=== PATIENT | female | born 1945 | race Caucasian/White ===

== ENCOUNTER 2018-01-29 21:57 | Inpatient (IN) | payer SELFPAY ==
[~2018-01-29] VITALS: Ht 157.5 cm; Wt 81.8 kg
[2018-01-29 23:11] LABS: MCH 29.2 PG (29.0-34.0); MCHC 34.9 G/DL (30.0-36.0); MCV 83.7 FL (83-99); PLATELET COUNT 259 K/uL (156-360); RBC DIS.WIDTH-CV 12.3 % (11.8-14.6); RBC DIS.WIDTH-SD 37.7 % (39-53); RED BLOOD COUNT 5.14 M/uL (3.80-5.20)
[2018-01-29 23:23] LABS: CHLORIDE 106 mEq/L (99-109); POTASSIUM 4.2 mEq/L (3.7-5.4); SODIUM 138 mEq/L (136-147)
[2018-01-29 23:25] LABS: GLUCOSE 132 mg/dL (70-99)
[2018-01-29 23:29] LABS: CREATININE 0.9 mg/dL (0.6-1.3)
[2018-01-29 23:30] LABS: UREA NITROGEN (BUN) 16 mg/dL (9-23)
[2018-01-29 23:46] LABS: GFR ESTIMATE (CALCULATED) > 59 mL/min/
[2018-01-30 01:45] LABS: TROP-I INTERPRETATION POSITIVE
[2018-01-30 01:46] LABS: TROP-I INTERPRETATION POSITIVE
[2018-01-30 01:50] LABS: TROPONIN-I 1.62 ng/mL (0.0-0.30)
[2018-01-30 02:22] LABS: ALBUMIN 4.2 g/dL (3.2-4.8)
[2018-01-30 02:25] LABS: TOTAL PROTEIN 8.1 g/dL (6.4-8.3)
[2018-01-30 02:26] LABS: TOTAL BILIRUBIN 0.5 mg/dL (0.0-1.0)
[2018-01-30 02:27] LABS: ALKALINE PHOSPHATASE 122 IU/L (3-129)
[2018-01-30 02:30] LABS: AST (GOT) 30 IU/L (2-34); DIRECT BILIRUBIN 0.2 mg/dL (0.0-0.3)
[2018-01-30 02:31] LABS: ALT (GPT) 22 IU/L (3-49); LIPASE 8 U/L (1.0-51.0)
[2018-01-30 03:04] LABS: D-DIMER ELISA < 150.00 ng/mLDDU (<230)
[2018-01-30 08:46] LABS: TROP-I INTERPRETATION POSITIVE
[2018-01-30 08:48] LABS: TROPONIN-I 1.96 ng/mL (0.0-0.30)
[2018-01-30] MEDS ORDERED: ZESTRIL10 MG PO (09:02)
[2018-01-30 11:21] VITALS: BP 171/82
== END 2018-01-30 14:45 | DRG 272 ==
LOC: EME 21:57 → 2SOUTH 01-30 05:14 → EDOF 01-30 05:14 → EDBD 01-30 05:14 → ENRESERV 01-30 05:16 → 2SOUTH 01-30 12:14 → ENRESERV 01-30 14:40 → 2SOUTH 01-30 14:45 → ENRESERV 01-30 14:48 → CANRESERV 01-30 14:48 → ENRESERV 01-30 14:50
PROVIDERS: Hospitalist
PROC: 5A02210 Assistance with Cardiac Output using Balloon Pump, Continuous (ICD-10-PCS; principal; 2018-01-30)
PROC: B2151ZZ Fluoroscopy of Left Heart using Low Osmolar Contrast (ICD-10-PCS; principal; 2018-01-30)
PROC: 0BH18EZ Insertion of Endotracheal Airway into Trachea, Via Natural or Artificial Opening Endoscopic (ICD-10-PCS; principal; 2018-01-30)
PROC: 5A12012 Performance of Cardiac Output, Single, Manual (ICD-10-PCS; principal; 2018-01-30)
PROC: 4A023N7 Measurement of Cardiac Sampling and Pressure, Left Heart, Percutaneous Approach (ICD-10-PCS; principal; 2018-01-30)
PROC: B2111ZZ Fluoroscopy of Multiple Coronary Arteries using Low Osmolar Contrast (ICD-10-PCS; principal; 2018-01-30)
DX: I21.4 Non-ST elevation (NSTEMI) myocardial infarction (principal); I25.10 Atherosclerotic heart disease of native coronary artery without angina pectoris; I10 Essential (primary) hypertension; E78.5 Hyperlipidemia, unspecified; I45.10 Unspecified right bundle-branch block; E66.9 Obesity, unspecified; Z68.32 Body mass index [BMI] 32.0-32.9, adult
CPT/HCPCS: 71046; 80048; 80076; 83690; 84484; 85027; 85347; 85379; 85610; 85730; 92950; 93005; 93306; 99281; 99285; C1725; C1769; C1887; C1894; J0330; J0360; J1644; J2250; J3010; J7030